=== PATIENT | male | born 1955 | race Caucasian/White ===

== ENCOUNTER → 2016-05-09 | Outpatient (CLI) | payer BC ==
[~2016-05-09] MED LIST: AMLO2.5T PO; ASP325TEC PO; ASPI-84; CLOP75TA PO; DOXA1TAB PO; DXZS2T; MTP100TCR PO; MULT-608; NIFE20CA; SIMV20TA3 PO
== END ==
LOC: RAD 13:50
PROVIDERS: ATTEND Internal Medicine Cardiovascular Disease
DX: I25.10 Atherosclerotic heart disease of native coronary artery without angina pectoris (principal); I73.9 Peripheral vascular disease, unspecified; I65.23 Occlusion and stenosis of bilateral carotid arteries; E78.4 Other hyperlipidemia; I10 Essential (primary) hypertension; R94.31 Abnormal electrocardiogram [ECG] [EKG]; E66.09 Other obesity due to excess calories
CPT/HCPCS: 93923

== ENCOUNTER → 2016-05-11 | Outpatient (CLI) | payer BC ==
[~2016-05-11] VITALS: Ht 182.9 cm; Wt 134.3 kg
[~2016-05-11] MED LIST changes: +CATHETER FLUSH 10 ML SYR IV PRN; +REGADENOSON 0.4 MG/5 ML SYR (LEXISCAN) IV ONE
[2016-05-11 09:03] VITALS: BP 156/84
[2016-05-11 09:27] VITALS: BP 143/100
[2016-05-11 09:28] VITALS: BP 152/92
[2016-05-11 09:30] VITALS: BP 152/91
--- NOTE | 2016-05-16 07:58 | STRESS TEST ---
PROCEDURE PHYSICIAN: JEFFERSON CLAYTON DATE OF PROCEDURE: 05/11/2016 RESTING AND POST REGADENOSON TECHNETIUM 99M TETROFOSMIN SPECT CT IMAGING: ORDERING PHYSICIAN: Dr. Clayton PRIMARY PHYSICIAN: Dr. Cottrell CLINICAL DIAGNOSIS: Coronary artery disease. Baseline images were carried out after injection of 10.61 mCi of technetium 99m tetrofosmin. This was followed by 0.4 mg of regadenoson and 33 mCi of technetium 99m tetrofosmin for stress imaging. The electrocardiogram showed sinus rhythm at baseline and the electrocardiogram did not change significantly with the regadenoson infusion. He noted mild dizziness following regadenoson infusion, which resolved in a few minutes. Review of images at rest and following stress, does not indicate any significant perfusion defects consistent with myocardial ischemia or infarction. Gated images show normal global left ventricular systolic function with normal regional wall motion. Left ventricular ejection fraction is calculated to be 48%, but subjectively appears somewhat higher. Left ventricular end-diastolic volume is 115 mL. TID is absent (0.98). CONCLUSIONS: 1. No evidence of significant myocardial ischemia or infarction on this study. 2. Mild cardiomegaly. 3. No regional wall motion. Left ventricular ejection fraction is calculated to be 48% but appears subjectively somewhat higher. Job ID: [id number] Dictated Date: 05/15/2016 12:11:22 Gum Machine Operator Date: 05/16/2016 07:54:27 / flory
== END ==
LOC: CARD 07:55
PROVIDERS: ATTEND Internal Medicine Cardiovascular Disease
DX: I25.10 Atherosclerotic heart disease of native coronary artery without angina pectoris (principal); I73.9 Peripheral vascular disease, unspecified; I65.23 Occlusion and stenosis of bilateral carotid arteries; E78.4 Other hyperlipidemia; I10 Essential (primary) hypertension; R94.31 Abnormal electrocardiogram [ECG] [EKG]; E66.09 Other obesity due to excess calories
CPT/HCPCS: 78452; 93017

== ENCOUNTER → 2017-07-10 | Outpatient (CLI) | payer BC ==
[~2017-07-10] VITALS: Ht 182.9 cm; Wt 132.0 kg
[2017-07-10 09:22] VITALS: BP 134/79
[2017-07-10 09:25] VITALS: BP 129/80
[2017-07-10 09:27] VITALS: BP 122/78
--- NOTE | 2017-07-10 22:08 | STRESS TEST ---
DATE OF SERVICE: 07/10/2017 RESTING AND POST REGADENOSON TECHNETIUM 99M TETROFOSMIN SPECT CT IMAGING ORDERING PHYSICIAN: Dr. Clayton. PRIMARY CARE PHYSICIAN: Dr. Cottrell. CLINICAL DIAGNOSES: Coronary artery disease. Baseline images were carried out after injection of 10.79 mCi technetium-99m Tetrofosmin for this was followed by 0.4 mg regadenoson and 29.7 mCi of technetium-99m tetrofosmin for stress imaging. The electrocardiogram showed sinus rhythm and did not change significantly with regadenoson infusion. He had some shortness of breath and chest discomfort following regadenoson infusion, which resolved in a few minutes. Review of images at rest and following stress does not indicate any distinct perfusion defects consistent with myocardial ischemia or infarction. Some degree of diaphragmatic attenuation is seen both at rest and following regadenoson infusion. Gated images do not show any regional wall motion abnormality. Global left ventricular systolic function is at the lower limit of normal to mildly impaired. Left ventricular ejection fraction is calculated to be 45%. Left ventricular end diastolic volume is 121 mL. CONCLUSIONS: 1. No evidence of significant myocardial ischemia or infarction. 2. Mild cardiomegaly. 3. Global left ventricular systolic function at the lower limit of normal to mildly impaired with a calculated ejection fraction of 45%. Job ID: [id number] DocumentID: [id number] Dictated Date: 07/10/2017 18:40:15 Patient Registration Manager Date: 07/10/2017 22:07:39 Dictated By: JEFFERSON CLAYTON MD, MA, FACP, FACC,
== END ==
LOC: CARD 07:18
PROVIDERS: ATTEND Internal Medicine Cardiovascular Disease
DX: I25.10 Atherosclerotic heart disease of native coronary artery without angina pectoris (principal); I65.29 Occlusion and stenosis of unspecified carotid artery; E78.4 Other hyperlipidemia; I10 Essential (primary) hypertension; E66.09 Other obesity due to excess calories; R06.02 Shortness of breath
CPT/HCPCS: 78452; 93017

== ENCOUNTER → 2017-08-23 | Outpatient (CLI) | payer BC ==
[~2017-08-23] MED LIST changes: -CATHETER FLUSH 10 ML SYR IV PRN; -REGADENOSON 0.4 MG/5 ML SYR (LEXISCAN) IV ONE
== END ==
LOC: CARD 13:25
PROVIDERS: ATTEND Internal Medicine Cardiovascular Disease
DX: I25.10 Atherosclerotic heart disease of native coronary artery without angina pectoris (principal); E78.4 Other hyperlipidemia; I10 Essential (primary) hypertension; E66.09 Other obesity due to excess calories; R06.02 Shortness of breath
CPT/HCPCS: 93306

== ENCOUNTER → 2018-02-22 | Outpatient (CLI) | payer BC ==
[~2018-02-22] MED LIST changes: +CATHETER FLUSH 10 ML SYR IV PRN; +IOHEXOL 350 MG/ML 100 ML (OMNIPAQUE 350) VIAL IV ONE; +NS 250 ML (IVPB) BAG IV ONE; +RECEIVED CONTRAST (Hold Metformin) IV SCH
[2018-02-22 11:14] LABS: BUN/CREATININE RATIO 17; CREATININE SERUM 1.03 MG/DL (0.60-1.30); GFR ESTIMATED > 60
--- NOTE | 2018-02-22 12:17 | Diagnostic Imaging Report ---
PROCEDURE: CT abdomen and pelvis with contrast. TECHNIQUE: Multiple contiguous axial images were obtained through the abdomen and pelvis after administration of intravenous contrast. INDICATION: Prostate cancer. Comparison is made with noncontrast CT from 03/31/2014. Lung bases are clear apart from minimal linear scarring or atelectasis in the left lower lobe. The liver demonstrates generalized low density consistent with hepatic steatosis. No discrete liver mass is seen. Gallbladder is unremarkable. Pancreas and spleen are unremarkable. No adrenal mass is identified. The kidneys are unremarkable. The aorta is non-aneurysmal. No central, retroperitoneal or mesenteric lymphadenopathy is detected. The small and large bowel loops are normal in caliber. The appendix is visualized and unremarkable. There is diverticulosis of the sigmoid and descending colon but no evidence of acute diverticulitis. No pelvic lymphadenopathy is detected. The bladder is unremarkable. There is some mild prostatic enlargement. No osteoblastic lesions are seen. IMPRESSION: 1. Hepatic steatosis. 2. Uncomplicated diverticulosis. 3. Prostatomegaly. 4. No evidence of abdominal or pelvic lymphadenopathy or metastatic disease. Dictated by: Dictated on workstation # [id number]
--- NOTE | 2018-02-22 14:39 | Diagnostic Imaging Report ---
INDICATION: Prostate carcinoma. TECHNIQUE: Patient was administered 26.6 mCi technetium 99m MDP intravenously and whole body imaging was performed after a three-hour delay. COMPARISON: No prior bone scans are available for comparison. FINDINGS: There is normal uptake of activity by the axial and appendicular skeleton. There is uptake by both kidneys with excretion into the urinary bladder. Mild uptake involving the medial knee compartments bilaterally is seen consistent with degenerative change. There is a small focus of uptake in the right infraorbital location, indeterminate. No suspicious foci are seen to suggest osseous metastatic disease. IMPRESSION: No scintigraphic evidence of osseous metastatic disease. Dictated by: Dictated on workstation # [id number]
== END ==
LOC: CARD 10:29
PROVIDERS: ATTEND Urology
DX: C61 Malignant neoplasm of prostate (principal); K76.0 Fatty (change of) liver, not elsewhere classified; K57.30 Diverticulosis of large intestine without perforation or abscess without bleeding
CPT/HCPCS: 36415; 74177; 78306; 82565; 84520

== ENCOUNTER → 2018-04-18 | Outpatient (CLI) | payer BC ==
[~2018-04-18] MED LIST changes: +AMLO10TA4 PO; +ASPI-999 PO; -CATHETER FLUSH 10 ML SYR IV PRN; +CIPR-225 PO; +GABA-488 PO; +HYDR-3870 PO; -IOHEXOL 350 MG/ML 100 ML (OMNIPAQUE 350) VIAL IV ONE; +LISI10TA2 PO; +METO-370 PO; -NS 250 ML (IVPB) BAG IV ONE; +OXYC-199 PO; +PENT400T9 PO; -RECEIVED CONTRAST (Hold Metformin) IV SCH; +TAMS0.4C98 PO
--- NOTE | 2018-04-18 17:00 | Diagnostic Imaging Report ---
INDICATION: Right flank pain. KUB 1:13 p.m. FINDINGS: There is a 6 mm triangular shaped calcification projecting over the right ureter at ureterovesical junction. On CT from 02/22/2018 there is a similar shaped opacity projecting over the lower pole of the right kidney. Currently there is no appreciable calculus seen in the right kidney. IMPRESSION: The calculus previously demonstrated in the lower pole of the right kidney is presumably now in the distal right ureter near the ureterovesical junction. Dictated by: Dictated on workstation # [id number]
== END ==
LOC: RAD 12:41
PROVIDERS: ATTEND Urology
DX: N20.1 Calculus of ureter (principal)
CPT/HCPCS: 74018

== ENCOUNTER 2018-04-19 10:22 | Day surgery (SDC) | payer BC ==
[~2018-04-19] VITALS: Ht 182.9 cm; Wt 133.1 kg
[~2018-04-19 10:22] MED LIST changes: -AMLO10TA4 PO; -ASPI-999 PO; -CIPR-225 PO; -GABA-488 PO; -HYDR-3870 PO; -LISI10TA2 PO; -METO-370 PO; -OXYC-199 PO; -PENT400T9 PO; -TAMS0.4C98 PO
[2018-04-19 10:49] VITALS: BP 136/78
--- NOTE | 2018-04-19 11:00 | Diagnostic Imaging Report ---
Indication: Preop for cystoscopy and right ureteral stone. Time of exam: 11:17 AM Correlation is made with prior study from 04/18/2018. There is a calcific density in the right pelvis measuring approximately 6 mm. No other calculi or calcific densities are seen. The bowel gas pattern is unremarkable. No calculi are seen overlying the kidneys. Impression: Right pelvic calcifications, indeterminate between phlebolith versus distal ureteric calculus. No other significant abnormality is seen. Dictated by: Dictated on workstation # [id number]
[2018-04-19] MEDS ORDERED: KETOROLAC 30 MG/ML VIAL ONE (11:37)
--- NOTE | 2018-04-19 11:38 | NUR ---
PATIENT REPORTS PAIN OF 8/10. THIS RN PHONED DR. PEREZ AND INFORMED, GAVE TELEPHONE ORDER FOR TORADOL 30MG ONCE AND LR AT 100 ML/HR
[2018-04-19] MEDS ORDERED: KETOROLAC 30 MG/ML VIAL IVP ONE (11:45)
[2018-04-19] MEDS: LACTATED RINGERS 1,000 ML IV SCH ×2 (11:55→15:49)
--- NOTE | 2018-04-19 12:36 | Progress Note-Pre Operative ---
Pre-Operative Progress Note H&P Reviewed The H&P was reviewed, patient examined and no changes noted. Date Seen by Provider: Apr 19, 2018 Time Seen by Provider: 12:36 Date H&P Reviewed: Apr 19, 2018 Time H&P Reviewed: 12:36 Pre-Operative Diagnosis: RT DISTAL URETERAL STONE DARNELL PEREZ MD Apr 19, 2018 12:36
[2018-04-19] MEDS ORDERED: cefTRIAXone 1 GM/NS 50 ML IVPB IV ONE ×2 (13:15)
[2018-04-19] MEDS ORDERED: LACTATED RINGERS 1,000 ML IV PRN (13:55)
[2018-04-19] MEDS ORDERED: LIDOCAINE PF 2% 5 ML (XYLOCAINE) VIAL ONE (14:18)
[2018-04-19] MEDS ORDERED: proPOfol 200 MG/20 ML (DIPRIVAN) VIAL IV ONE (14:18)
[2018-04-19] MEDS ORDERED: MIDAZOLAM 2 MG/2 ML (VERSED) VIAL ONE (14:19)
[2018-04-19] MEDS ORDERED: fentaNYL INJECTION 100 MCG/2 ML AMP ONE (14:19)
[2018-04-19] MEDS ORDERED: DEXAMETHASONE 10 MG/ML (DECADRON) 1 ML VIAL ONE (14:25)
[2018-04-19] MEDS ORDERED: ONDANSETRON 4 MG/2 ML (SDV) Z0FRAN ONE (14:25)
[2018-04-19] MEDS ORDERED: SEVOFLURANE (ULTANE) 15 ML INHAL SOLN ONE (14:25)
[2018-04-19] MEDS ORDERED: AMLO10TA4 PO (14:36)
[2018-04-19] MEDS ORDERED: ASPI-999 PO (14:41)
[2018-04-19] MEDS ORDERED: METO-370 PO (14:42)
[2018-04-19] MEDS ORDERED: SIMV20TA3 PO (14:45)
[2018-04-19] MEDS ORDERED: PENT400T9 PO (14:50)
[2018-04-19] MEDS ORDERED: OXYC-199 PO (14:50)
[2018-04-19] MEDS ORDERED: CIPR-225 PO (14:50)
[2018-04-19] MEDS ORDERED: LISI10TA2 PO (14:50)
[2018-04-19] MEDS ORDERED: TAMS0.4C98 PO ×2 (14:50→17:30)
[2018-04-19] MEDS ORDERED: GABA-488 PO (14:50)
--- NOTE | 2018-04-19 16:10 | Progress Note-Post Operative ---
Post-Operative Progess Note Surgeon (s)/Bb Shot Packer (s) Surgeon DARNELL PEREZ MD Bb Shot Packer: NONE Pre-Operative Diagnosis RT DISTAL URETERAL STONE Post-Operative Diagnosis SAME Procedure & Operative Findings Date of Procedure 04/19/18 Procedure Performed/Findings RT URETEROSCOPY WITH STONE LITHOTRIPSY AND STENT Anesthesia Type GENERAL Estimated Blood Loss Estimated blood loss (mL): NONE Specimens/Packing Specimens Removed NONE Packing: NONE DARNELL PEREZ MD Apr 19, 2018 16:09
--- NOTE | 2018-04-19 16:16 | Discharge Inst-Urology ---
Discharge Inst-Urology Discharge Medications New, Converted, or Re-newed RX: RX on Chart Patient Instructions/Follow Up Plan Patient to make appointment in office after his prostate surgery in [facility] to DC godo and Follow up with me. Increase oral fluids for 48 hours and then as needed. Diet and Activity as tolerated. If questions or concerns contact your physician Or seek help at emergency department. DARNELL PEREZ MD Apr 19, 2018 16:16
--- NOTE | 2018-04-19 16:32 | Diagnostic Imaging Report ---
INDICATION: Nephrolithiasis. TECHNIQUE: Two intraprocedural images 3:56 p.m. CORRELATION STUDY: None FINDINGS: Fluoroscopy utilized by Dr. Dunbar. No radiologist present. Fluoroscopy time: 49 seconds IMPRESSION: 1. Fluoroscopy utilized for intraprocedural guidance. Dictated by: Dictated on workstation # [id number]
[2018-04-19 17:10] VITALS: BP 119/81
[2018-04-19] MEDS ORDERED: HYDR-3870 PO (17:30)
[2018-04-19 17:40] VITALS: BP 120/80
[2018-04-19 18:10] VITALS: BP 130/80
[2018-04-19 18:15] VITALS: BP 130/80
--- NOTE | 2018-04-20 01:56 | OPERATIVE REPORT ---
DATE OF SERVICE: 04/19/2018 PREOPERATIVE DIAGNOSIS: Right distal ureteral stone. POSTOPERATIVE DIAGNOSIS: Right distal ureteral stone. OPERATION PERFORMED: Right ureteroscopy with stone lithotripsy and insertion of a stent. SURGEON: Michael Perez MD. ANESTHESIA: General. COMPLICATIONS: None. DESCRIPTION OF PROCEDURE: Under satisfactory general anesthesia, the patient in lithotomy position, genitalia were prepped and draped in the usual sterile fashion. Cystoscope was introduced under vision. The anterior urethra was normal. The prostate was nonobstructing. Bladder neck was open. The bladder was normal except a sluggish efflux on the right side. Using the foroblique lens, I dilated the right ureteral orifice and intramural portion to the level of the stone to accommodate the 6.9-Nepali semi-rigid ureteroscope. I visualized the stone that was floating, so I went ahead and broke it up with the lithoclast first at a power of 5 in order not to lose the stone proximally and then after fragmenting it nicely completed fragmentation with power of 12, which completely fragmented the stone. Most of the fragments fell into the bladder. However, because he is having a robotic radical prostatectomy at on Sunday, I want to make sure it is okay; I decided to leave a stent, which can be removed with a 6-Nepali double-J stent, no problem, emptied the bladder, removed the cystoscope. The patient tolerated the procedure and anesthesia well and was sent to recovery room in stable condition. Job ID: [id number] DocumentID: [id number] Dictated Date: 04/19/2018 16:18:31 Quality Cloth Tester Date: 04/20/2018 01:55:37 Dictated By: MICHAEL PEREZ MD
== END 2018-04-19 18:15 | disposition home or self-care (01) ==
LOC: SDC 10:22
PROVIDERS: ATTEND Urology
DX: N20.1 Calculus of ureter (principal); I10 Essential (primary) hypertension; I25.10 Atherosclerotic heart disease of native coronary artery without angina pectoris; C61 Malignant neoplasm of prostate; Z79.899 Other long term (current) drug therapy; Z95.5 Presence of coronary angioplasty implant and graft
CPT/HCPCS: 74018; 87081

== ENCOUNTER → 2018-05-16 | Outpatient (CLI) | payer BC ==
[~2018-05-16] MED LIST changes: +AMLO10TA4 PO; +ASPI-999 PO; +CIPR-225 PO; +GABA-488 PO; +HYDR-3870 PO; +LISI10TA2 PO; +METO-370 PO; +OXYC-199 PO; +PENT400T9 PO; +TAMS0.4C98 PO
--- NOTE | 2018-05-16 16:18 | Diagnostic Imaging Report ---
INDICATION: Right ureteral stone status post lithotripsy. TIME OF EXAM: 3:03 p.m. COMPARISON: Correlation is made with prior study from 04/19/2018. FINDINGS: Bowel gas pattern is unremarkable. No definite calculi are seen overlying the renal shadows. No definite calculi along the course of the ureters is seen. Previously noted calcific density in the right hemipelvis is not well seen on today's study. IMPRESSION: No definite urinary tract calculi are identified. Dictated by: Dictated on workstation # [id number]
== END ==
LOC: RAD 14:59
PROVIDERS: ATTEND Urology
DX: N20.1 Calculus of ureter (principal); Z98.890 Other specified postprocedural states
CPT/HCPCS: 74018

== ENCOUNTER → 2019-01-14 | Outpatient (RCR) | payer BC ==
[2018-12-25 08:47] LABS: CREATININE SERUM 1.04 MG/DL (0.60-1.30)
[~2019-01-14] MED LIST changes: -PENT400T9 PO; +PNT400TCR PO
== END | disposition home or self-care (01) ==
LOC: ONC 09-27 14:06
PROVIDERS: ATTEND Radiology Radiation Oncology
DX: Z51.0 Encounter for antineoplastic radiation therapy (principal); C61 Malignant neoplasm of prostate
CPT/HCPCS: 36415; 77300; 77301; 77334; 77336; 77338; 77385; 82565; 84520; 99204

== ENCOUNTER 2019-02-26 07:43 | Outpatient (RCR) | payer BC | END 2019-04-15 | disposition home or self-care (01) | LOC: ONC 07:43 | PROVIDERS: ATTEND Radiology Radiation Oncology | DX: Z51.0 Encounter for antineoplastic radiation therapy (principal); C61 Malignant neoplasm of prostate | CPT/HCPCS: 77300; 77336; 77338; 77385 ==

== ENCOUNTER → 2020-11-30 | Outpatient (CLI) | payer BC, MEDICARE, OTHER ==
[~2020-11-30] MED LIST changes: -LISI10TA2 PO; +LISI10TA25 PO; -METO-370 PO; +METO50TA7 PO; +SIMV20TA26 PO; -TAMS0.4C98 PO; +TMSL.4C PO
== END ==
LOC: CARD 12:00
PROVIDERS: ATTEND Internal Medicine Cardiovascular Disease
DX: I11.9 Hypertensive heart disease without heart failure (principal); I34.8 Other nonrheumatic mitral valve disorders
CPT/HCPCS: 93306

== ENCOUNTER → 2020-12-03 | Outpatient (CLI) | payer MEDICARE, OTHER ==
[~2020-12-03] VITALS: Ht 185 cm; Wt 136.0 kg
[~2020-12-03] MED LIST changes: +CATHETER FLUSH 10 ML SYR IV PRN; +REGADENOSON 0.4 MG/5 ML SYR (LEXISCAN) IV ONE
[2020-12-03 09:08] VITALS: BP 188/95
== END ==
LOC: CARD 07:45
PROVIDERS: ATTEND Internal Medicine Cardiovascular Disease
DX: I25.10 Atherosclerotic heart disease of native coronary artery without angina pectoris (principal)
CPT/HCPCS: 78452; 93017; A9502

== ENCOUNTER → 2022-02-06 | Outpatient (CLI) | payer MEDICARE, OTHER ==
[~2022-02-06] MED LIST changes: -CATHETER FLUSH 10 ML SYR IV PRN; -REGADENOSON 0.4 MG/5 ML SYR (LEXISCAN) IV ONE
[2022-02-06 09:12] LABS: HEMATOCRIT 42 % (40-54); HEMOGLOBIN 13.8 g/dL (13.3-17.7); MEAN CORPUSCULAR HEMOGLOBIN 29 pg (25-34); MEAN CORPUSCULAR HGB CONC 33 g/dL (32-36); MEAN CORPUSCULAR VOLUME 90 fL (80-99); MEAN PLATELET VOLUME 9.9 fL (9.0-12.2); PLATELET COUNT 179 10^3/uL (130-400); WHITE BLOOD COUNT 5.7 10^3/uL (4.3-11.0)
[2022-02-06 09:21] LABS: ALBUMIN 4.1 GM/DL (3.2-4.5); POTASSIUM 4.2 MMOL/L (3.6-5.0)
[2022-02-06 09:22] LABS: CALCIUM 9.3 MG/DL (8.5-10.1)
[2022-02-06 09:23] LABS: TOTAL PROTEIN 6.9 GM/DL (6.4-8.2)
[2022-02-06 09:25] LABS: BILIRUBIN,TOTAL 0.5 MG/DL (0.1-1.0)
[2022-02-06 09:27] LABS: CREATININE SERUM 0.99 MG/DL (0.60-1.30)
== END ==
LOC: LAB 08:56
PROVIDERS: ATTEND Internal Medicine Cardiovascular Disease
DX: I25.10 Atherosclerotic heart disease of native coronary artery without angina pectoris (principal); I34.89 Other nonrheumatic mitral valve disorders; I51.9 Heart disease, unspecified; I65.23 Occlusion and stenosis of bilateral carotid arteries; I12.9 Hypertensive chronic kidney disease with stage 1 through stage 4 chronic kidney disease, or unspecified chronic kidney disease; N18.2 Chronic kidney disease, stage 2 (mild); E78.2 Mixed hyperlipidemia
CPT/HCPCS: 36415; 80053; 80061; 84443; 85027

== ENCOUNTER → 2022-03-22 | Outpatient (CLI) | payer MEDICARE, OTHER ==
[2022-03-22 10:34] LABS: ALBUMIN 4.2 GM/DL (3.2-4.5); BILIRUBIN,TOTAL 0.5 MG/DL (0.1-1.0); CALCIUM 9.6 MG/DL (8.5-10.1); CREATININE SERUM 1.15 MG/DL (0.60-1.30); POTASSIUM 3.8 MMOL/L (3.6-5.0); TOTAL PROTEIN 7.3 GM/DL (6.4-8.2)
== END ==
LOC: LAB 09:08
PROVIDERS: ATTEND Internal Medicine Cardiovascular Disease
DX: I25.10 Atherosclerotic heart disease of native coronary artery without angina pectoris (principal); I13.0 Hypertensive heart and chronic kidney disease with heart failure and stage 1 through stage 4 chronic kidney disease, or unspecified chronic kidney disease; N18.2 Chronic kidney disease, stage 2 (mild); I51.9 Heart disease, unspecified; E78.2 Mixed hyperlipidemia; I65.23 Occlusion and stenosis of bilateral carotid arteries
CPT/HCPCS: 36415; 80053; 80061

== ENCOUNTER → 2023-01-24 | Outpatient (CLI) | payer MEDICARE, OTHER ==
[2023-01-24 10:02] LABS: BASOPHILS # (AUTO) 0.1 10^3/uL (0.0-0.1); BASOPHILS % (AUTO) 1 % (0-10); EOSINOPHILS # (AUTO) 0.2 10^3/uL (0.0-0.3); EOSINOPHILS % (AUTO) 3 % (0-10); HEMATOCRIT 45 % (40-54); HEMOGLOBIN 15.2 g/dL (13.3-17.7); LYMPHOCYTES # (AUTO) 1.2 10^3/uL (1.0-4.0); LYMPHOCYTES % (AUTO) 19 % (12-44); MEAN CORPUSCULAR HEMOGLOBIN 30 pg (25-34); MEAN CORPUSCULAR HGB CONC 34 g/dL (32-36); MEAN CORPUSCULAR VOLUME 88 fL (80-99); MEAN PLATELET VOLUME 9.7 fL (9.0-12.2); MONOCYTES # (AUTO) 0.6 10^3/uL (0.0-1.0); MONOCYTES % (AUTO) 9 % (0-12); NEUTROPHILS # (AUTO) 4.4 10^3/uL (1.8-7.8); NEUTROPHILS % (AUTO) 69 % (42-75); PLATELET COUNT 187 10^3/uL (130-400); WHITE BLOOD COUNT 6.4 10^3/uL (4.3-11.0)
[2023-01-24 10:10] LABS: ALBUMIN 4.3 GM/DL (3.2-4.5); POTASSIUM 4.4 MMOL/L (3.6-5.0)
[2023-01-24 10:11] LABS: CALCIUM 9.5 MG/DL (8.5-10.1)
[2023-01-24 10:13] LABS: TOTAL PROTEIN 7.4 GM/DL (6.4-8.2)
[2023-01-24 10:15] LABS: BILIRUBIN,TOTAL 0.8 MG/DL (0.1-1.0)
[2023-01-24 10:16] LABS: CREATININE SERUM 1.26 MG/DL (0.60-1.30)
== END ==
LOC: LAB 09:39
PROVIDERS: ATTEND Internal Medicine Cardiovascular Disease
DX: I13.10 Hypertensive heart and chronic kidney disease without heart failure, with stage 1 through stage 4 chronic kidney disease, or unspecified chronic kidney disease (principal); N18.2 Chronic kidney disease, stage 2 (mild); I25.10 Atherosclerotic heart disease of native coronary artery without angina pectoris; E78.2 Mixed hyperlipidemia; I65.23 Occlusion and stenosis of bilateral carotid arteries; I48.0 Paroxysmal atrial fibrillation
CPT/HCPCS: 36415; 80053; 80061; 84443; 85025

== ENCOUNTER → 2023-02-13 | Day surgery (SDC) | payer MEDICARE, OTHER ==
[~2023-02-13] VITALS: Ht 185.4 cm; Wt 131.1 kg
[2023-02-13] VITALS (13 sets, daily range): BP systolic 122–179; BP diastolic 97–133
[~2023-02-13] MED LIST changes: +APIX5TAB PO; +ASPI-1238 PO; +CHOL200059 PO; +CYAN500011 PO; +DOXA4TAB2 PO; +GABA300C PO; +IBUP-2473 PO; +LIDOCAINE 2% VISCOUS 15 ML UDC ONE; +LIDOCAINE 2% VISCOUS 15 ML UDC PO ONE; +LISI40TA9 PO; +MIDAZOLAM INJ 5 MG/5 ML VIAL IV ONE; +MIDAZOLAM INJ 5 MG/5 ML VIAL ONE; +NS IV 1000 ML 1,000 ML IV ONE; +NS IV 1000 ML 1,000 ML ONE; +ROSU20TA73 PO; +VNL75T PO; +fentaNYL INJECTION 100 MCG/2 ML VIAL IV ONE; +fentaNYL INJECTION 100 MCG/2 ML VIAL ONE; +proPOfol INJECTION 200 MG/20 ML VIAL IV ONE
[2023-02-13 10:09] LABS: HEMATOCRIT 44 % (40-54); HEMOGLOBIN 14.6 g/dL (13.3-17.7); MEAN CORPUSCULAR HEMOGLOBIN 30 pg (25-34); MEAN CORPUSCULAR HGB CONC 33 g/dL (32-36); MEAN CORPUSCULAR VOLUME 90 fL (80-99); MEAN PLATELET VOLUME 9.8 fL (9.0-12.2); PLATELET COUNT 188 10^3/uL (130-400); WHITE BLOOD COUNT 6.1 10^3/uL (4.3-11.0)
[2023-02-13 10:24] LABS: INR 1.2 (0.8-1.4); PROTHROMBIN TIME PATIENT 15.8 SEC (12.2-14.7)
[2023-02-13 10:33] LABS: ALBUMIN 4.3 GM/DL (3.2-4.5); BILIRUBIN,TOTAL 0.7 MG/DL (0.1-1.0); CALCIUM 9.5 MG/DL (8.5-10.1); CREATININE SERUM 1.2 MG/DL (0.60-1.30); POTASSIUM 4.3 MMOL/L (3.6-5.0); TOTAL PROTEIN 7.4 GM/DL (6.4-8.2)
--- NOTE | 2023-02-13 13:44 | Anesthesia-General Post-Op ---
MAC Patient Condition Mental Status/LOC: Same as Preop Cardiovascular: Satisfactory Nausea/Vomiting: Absent Respiratory: Satisfactory Pain: Controlled Complications: Absent Post Op Complications Complications None Follow Up Care/Instructions Patient Instructions None needed. Anesthesiology Discharge Order Discharge Order Patient is doing well, no complaints, stable vital signs, no apparent adverse anesthesia problems. No complications reported per nursing. FATOU NAVARRETE CRNA Feb 13, 2023 13:44
--- NOTE | 2023-02-13 22:34 | OPERATIVE REPORT ---
DATE OF SERVICE: 02/13/2023 PREOPERATIVE DIAGNOSIS: Atrial fibrillation. POSTOPERATIVE DIAGNOSIS: Sinus rhythm. PROCEDURE: External electrical cardioversion. DESCRIPTION OF PROCEDURE: [facility] Transesophageal echocardiography did not indicate any intracardiac thrombus. Informed consent had been obtained for transesophageal echocardiography and external electrical cardioversion. External electrical cardioversion was carried out after the nurse manager life insurance provided short-acting anesthesia. 150 joules of synchronized shock was delivered through external patches, which converted atrial fibrillation to sinus rhythm. He tolerated the procedure well. Job ID: [id number] DocumentID: [id number] Dictated Date: 02/13/2023 13:30:21 Travel Rn Or Date: 02/13/2023 22:33:00 Dictated By: JEFFERSON CISNEROS MD; VERNON; FACP; FACC;
== END | disposition home or self-care (01) ==
LOC: CATH 09:37
PROVIDERS: ATTEND Internal Medicine Cardiovascular Disease
DX: I48.0 Paroxysmal atrial fibrillation (principal); I25.10 Atherosclerotic heart disease of native coronary artery without angina pectoris; M79.642 Pain in left hand; M79.641 Pain in right hand; G89.29 Other chronic pain; R73.01 Impaired fasting glucose; E66.9 Obesity, unspecified; I65.23 Occlusion and stenosis of bilateral carotid arteries; R94.31 Abnormal electrocardiogram [ECG] [EKG]; N18.2 Chronic kidney disease, stage 2 (mild); I13.10 Hypertensive heart and chronic kidney disease without heart failure, with stage 1 through stage 4 chronic kidney disease, or unspecified chronic kidney disease; M79.605 Pain in left leg; M79.604 Pain in right leg; E78.2 Mixed hyperlipidemia; Z87.891 Personal history of nicotine dependence; Z68.38 Body mass index [BMI] 38.0-38.9, adult; Z95.5 Presence of coronary angioplasty implant and graft; Z90.89 Acquired absence of other organs; Z85.46 Personal history of malignant neoplasm of prostate; Z90.79 Acquired absence of other genital organ(s); Z79.899 Other long term (current) drug therapy; Z79.82 Long term (current) use of aspirin; Z79.01 Long term (current) use of anticoagulants
CPT/HCPCS: 36415; 80053; 80061; 85027; 85610; 85730; 87081; 92960; 93005; 93312

== ENCOUNTER → 2023-03-06 | Outpatient (CLI) | payer MEDICARE, OTHER ==
[~2023-03-06] MED LIST changes: -LIDOCAINE 2% VISCOUS 15 ML UDC ONE; -LIDOCAINE 2% VISCOUS 15 ML UDC PO ONE; -MIDAZOLAM INJ 5 MG/5 ML VIAL IV ONE; -MIDAZOLAM INJ 5 MG/5 ML VIAL ONE; -NS IV 1000 ML 1,000 ML IV ONE; -NS IV 1000 ML 1,000 ML ONE; +REGADENOSON 0.4 MG/5 ML SYR IV ONE; -fentaNYL INJECTION 100 MCG/2 ML VIAL IV ONE; -fentaNYL INJECTION 100 MCG/2 ML VIAL ONE; -proPOfol INJECTION 200 MG/20 ML VIAL IV ONE
[2023-03-06] MEDS: CATHETER FLUSH 10 ML SYR IVP PRN ×2 (08:06→09:28)
[2023-03-06 09:26] VITALS: BP 169/97
--- NOTE | 2023-03-06 16:50 | STRESS TEST ---
DATE OF SERVICE: 03/06/2023 RESTING AND POST REGADENOSON TECHNETIUM-99M TETROFOSMIN SPECT CT IMAGING ORDERING PHYSICIAN: NIKKO Pires CLINICAL DIAGNOSIS: Coronary artery disease. Baseline images were carried out after injection of 10.97 mCi of technetium-99m tetrofosmin. This was followed by 0.4 mg regadenoson and 30.9 mCi of technetium-99m tetrofosmin for stress imaging. The electrocardiogram showed sinus rhythm at baseline. It did not change significantly with regadenoson infusion. Occasional isolated premature ventricular contractions were seen during the study. The patient tolerated the procedure well. Review of images at rest and following stress does not indicate any distinct perfusion defects consistent with significant myocardial ischemia or infarction. Gated images show well-preserved global left ventricular systolic function without distinct regional wall motion abnormality. Left ventricular ejection fraction is calculated to be 54%. Left ventricular end-diastolic volume is 106 mL. TID is absent (1.06). CONCLUSIONS: 1. No evidence of significant myocardial ischemia or infarction on this study. 2. Well-preserved global left ventricular systolic function with an ejection fraction of 54% and without distinct regional wall motion abnormality. 3. Mild cardiomegaly. Job ID: [id number] DocumentID: [id number] Dictated Date: 03/06/2023 15:25:09 Keypunch Operators Supervisor Date: 03/06/2023 16:48:00 Dictated By: JEFFERSON CISNEROS MD; VERNON; FACP; FACC; MTDD
== END ==
LOC: CARD 07:48
PROVIDERS: ATTEND Nurse Practitioner Family
DX: I25.10 Atherosclerotic heart disease of native coronary artery without angina pectoris (principal)
CPT/HCPCS: 78452; 93017; A9502